=== PATIENT | female | born 1990 | race Caucasian/White ===

== ENCOUNTER 2018-08-08 16:15 | Inpatient (IN) | payer OTHER ==
[2018-08-08 16:43] VITALS: BMI 25.9
[2018-08-08 17:11] LABS: Amnisure Test RUPTURE DETECTED (No Rupture)
[2018-08-08 17:12] LABS: Amnisure Internal Control QC ACCEPTABLE (ACCEPTABLE)
[2018-08-08] MEDS ORDERED: Ibuprofen 800 MG TAB PO PRN (17:36)
[2018-08-08] MEDS ORDERED: Acetaminophen 500 MG TAB PO PRN (17:36)
[2018-08-08] MEDS ORDERED: Promethazine HCl 25 MG/ML VIAL IM PRN ×2 (17:36→20:49)
[2018-08-08] MEDS ORDERED: NS / Oxytocin 40 units/1000ml 1,000 ML IV PRN (17:36)
[2018-08-08] MEDS ORDERED: Butorphanol Tartrate 1 MG/ML VIAL SLOW IVP PRN (17:36)
[2018-08-08] MEDS ORDERED: Lidocaine 1% (PF) 30 ML VIAL SC PRN (17:36)
[2018-08-08] MEDS ORDERED: Zolpidem Tartrate 5 MG TAB PO PRN (17:36)
[2018-08-08] MEDS ORDERED: Ondansetron HCl/PF 4 MG/2 ML Vial IVP PRN ×2 (17:36→20:49)
[2018-08-08] MEDS ORDERED: HYDROcodone/Acetaminophen 5/325 mg Tablet PO PRN ×2 (17:36)
--- NOTE | 2018-08-08 17:44 | PDOC.LDHP ---
Labor and Delivery H&P Chief complaint: loss of fluid HPI: 28 yo LAF presents c/o SROM clear at 8:30 am. Now reports UCs q 10-15 mins. Current gestational age (weeks): 38 Due date: 08/18/18 Dating criteria: first trimester ultrasound Grav: 2 Para: 1 OB History Details: Initial PNC in [place], then transfered to Dr. Joyner. PNC complicated by GDM, well controlled on diet. Current complications: gestational diabetes Abnormal US findings: No Past Medical History: None Current medications: pre-pavithra vitamins Previous surgical history: none Allergies/Adverse Reactions: Allergies Allergy/AdvReac Type Severity Reaction Status Date / Time Tetanus Vaccines and Toxoid Allergy Verified 08/08/18 16:45 Social history: none - Physical Exam Vital signs reviewed and normal: yes General: NAD Lungs: nonlabored breathing Abdomen: gravid Extremeties: trace edema FHT: category 1 [place] contractions every: Q 7-8 mins, mild to palpation - Vaginal Exam cm dilated: 1 Effacement: 25% Station: -2 - OB Labs Blood type: unknown RH: unknown Antibody Screen: unknown HIV: unknown RPR: unknown HEPSAg: unknown 1 hour GCT: unknown GBS: unknown - Assessment L&D Assessment: term rupture in membranes - Plan Plan: admit to L&D, cervical ripening, labor augmentation if indicated, informed consent obtained (Will begin Cytotec 50 mg q 3hrs per Dr. Joyner)
[2018-08-08] MEDS ORDERED: Lactated Ringer's 1,000 ML IV SCH (17:45)
[2018-08-08] MEDS ORDERED: NS w/ Oxytocin 10 units 500 ML IV SCH (17:45)
[2018-08-08] MEDS: Lactated Ringer's 1,000 ML IV SCH ×2 (17:52→20:25)
--- NOTE | 2018-08-08 17:53 | PDOC.EVN ---
Event Note - Event Note Event Note: No PN records from [facility] available at this time. Pt. reports she was told she was GBS negative by Dr. Joyner.
[2018-08-08 17:57] LABS: Hemoglobin 11.3 g/dL (12.0-16.0); Mean Corpuscular HGB CONC 33.3 g/dL (32.0-36.0); Mean Corpuscular Hemoglobin 28.2 pg (27.0-31.0); Mean Corpuscular Volume 84.6 fL (78.0-98.0); Mean Platelet Volume 8.9 fL (7.4-10.4); Platelet Count 236 thou/uL (130-400); RBC Distribution Width 13.5 % (11.5-14.5); White Blood Cell (WBC) Count 9.6 thou/uL (4.8-10.8)
[2018-08-08] MEDS: Misoprostol 100 MCG TAB PO SCH ×2 (18:19→21:41)
[2018-08-08 18:31] LABS: Syphilis Antibody Nonreactive (Nonreactive); Syphilis Antibody Index 0.04 S/CO (<1.00 Non-Reactive)
[2018-08-08 18:32] LABS: HBSAg Index 0.22 S/CO (0-0.99); Hep B Surf Ag Non-Reactive S/CO (NonReactive)
[2018-08-08] MEDS ORDERED: Bupivacaine 0.5% 20 ML, fentaNYL Citrate/PF 400 MCG in Sodium Chloride 0.9% 72 ML EPIDURAL SCH (18:45)
[2018-08-08] MEDS ORDERED: DISCONTINUE ALL PREVIOUS NARCOTICS FS SCH (18:45)
[2018-08-08] MEDS ORDERED: Bupivacaine 0.25% HCL 30 ML VIAL ONE (20:26)
[2018-08-08] MEDS ORDERED: diphenhydrAMINE 50 MG/ML VIAL IVP PRN (20:49)
[2018-08-08] MEDS ORDERED: ePHEDrine/0.9% NaCl/PF SYRINGE 50 mg/10 ml SLOW IVP PRN (20:49)
[2018-08-08] MEDS ORDERED: Eucerin (Mineral Oil/Petrolatum,White) 30 gm Jar TOP PRN (20:49)
[2018-08-08] MEDS ORDERED: Lactated Ringer's 500 ML IV PRN (20:49)
[2018-08-08] MEDS ORDERED: Naloxone HCl 0.4 mg/ml Vial IVP PRN ×2 (20:49)
[2018-08-08] MEDS ORDERED: Acetaminophen 325 MG TAB PO PRN (20:49)
[2018-08-08] MEDS ORDERED: fentaNYL Citrate/PF 400 MCG, Bupivacaine 0.5% 20 ML in Sodium Chloride 0.9% 72 ML EPIDURAL SCH (21:00)
[2018-08-08] MEDS ORDERED: Communication Order-Pharmacy FS SCH (21:00)
[2018-08-09] MEDS ORDERED: Bupivacaine 0.25% HCL 30 ML VIAL ONE (01:11)
[2018-08-09] MEDS ORDERED: Bupivacaine/Epinephrine 0.25% 30 ML VIAL ONE (01:11)
--- NOTE | 2018-08-09 02:21 | PDOC.OPDEL ---
OB Operative/Delivery Note Delivery Dr/Surgeon: Ar Assist: n/a Pre-Delivery Diagnosis: ruptured membrane Procedure/Post Delivery Dx: spontaneous vaginal delivery Weeks gestation: 38 Anesthesia: epidural - Findings A Sex: male - 1 min: 7 - 5 min: 9 - Additional Findings/Plan Placenta delivered: spontaneous Repaired Obstetrical Laceration: none Estimated blood loss: 300 qbl pending Compilations/Other Findings: Tight NC x 2, delivered through Post delivery plan: routine recovery
[2018-08-09] MEDS: Misoprostol 100 MCG TAB PO SCH ×2 (03:55→10:46)
[2018-08-09] MEDS ORDERED: HYDROcodone/Acetaminophen 5/325 mg Tablet PO PRN ×2 (03:56)
[2018-08-09] MEDS ORDERED: Benzocaine/Menthol 20-0.5% 60 ML CAN TOP PRN (03:56)
[2018-08-09] MEDS ORDERED: NS / Oxytocin 40 units/1000ml 1,000 ML IV SCH (03:56)
[2018-08-09] MEDS ORDERED: diphenhydrAMINE 25 MG CAP PO PRN (03:56)
[2018-08-09] MEDS ORDERED: Milk Of Magnesia 30 ML UDCUP PO PRN (03:56)
[2018-08-09] MEDS ORDERED: Bisacodyl 10 MG SUPP PR PRN (03:56)
[2018-08-09] MEDS ORDERED: Preparation H Ointment 28 GM TUBE PR PRN (03:56)
[2018-08-09] MEDS ORDERED: Ibuprofen 800 MG TAB PO SCH (06:00)
[2018-08-09] MEDS ORDERED: Ferrous Sulfate 325 MG TAB PO SCH (08:00)
[2018-08-09] MEDS ORDERED: Docusate Calcium (SURFAK) 240 MG CAP PO SCH (09:00)
[2018-08-09] MEDS: Prenatal Vitamin 1 TAB PO SCH (09:12)
[2018-08-09] MEDS ORDERED: diphenhydrAMINE 12.5 MG/5 ML UDCUP PO PRN (13:00)
[2018-08-09] MEDS: Ibuprofen 100 MG/5 ML UDCUP PO SCH ×2 (13:20→22:10)
[2018-08-09] MEDS: Lanolin Ointment 7 GM TUBE TOP PRN (13:22)
[2018-08-09] MEDS: Docusate Sodium 100 MG/10 ML UDCUP PO SCH (22:06)
[2018-08-10] MEDS: Ibuprofen 100 MG/5 ML UDCUP PO SCH ×2 (05:54→08:47)
--- NOTE | 2018-08-10 07:31 | PDOC.PP ---
Post Progress Note Post Day #: 1 PO intake tolerated: yes Flatus: yes Ambulation: yes Vital Signs (12 hours) Temp Pulse Resp BP 08/09/18 23:43 98.0 F 78 16 94/55 L 08/09/18 19:40 97.9 F 75 16 101/57 L Weight Weight 142 lb - Physical Examination General: NAD Cardiovascular: RRR Respiratory: non-labored breathing Abdominal: no distention, appropriately TTP Fundus firm & at: umb-2 Skin: no rash Psychiatric: normal affect Result Diagrams: 08/08/18 17:42 Additional Labs: Post Labs Blood Type A POSITIVE 08/08/18 17:42 Hep Bs Antigen Non-Reactive S/CO (NonReactive) 08/08/18 17:42 - Assessment/Plan PPD1 s/p TSVD VSSAF Doing well lochia appropriate Rh pos RImm DC home FU 6w
[2018-08-10 07:57] VITALS: BP 99/54; TEMP 98.7
[2018-08-10] MEDS: Prenatal Vitamin 1 TAB PO SCH (08:48)
[2018-08-10] MEDS: Docusate Sodium 100 MG/10 ML UDCUP PO SCH (08:48)
[2018-08-10] MEDS: Lanolin Ointment 7 GM TUBE TOP PRN (16:12)
== END 2018-08-10 17:25 | disposition home or self-care (01) | DRG 807 ==
LOC: L&D/OP 16:15 → L&D 17:36 → 3SW 08-09 04:37
PROVIDERS: ADMIT Student in an Organized Health Care Education/Training Program; ATTEND Student in an Organized Health Care Education/Training Program
PROC: 10E0XZZ Delivery of Products of Conception, External Approach (ICD-10-PCS; principal; 2018-08-08)
DX: O24.420 Gestational diabetes mellitus in childbirth, diet controlled (principal); Z37.0 Single live birth; Z3A.38 38 weeks gestation of pregnancy; O76 Abnormality in fetal heart rate and rhythm complicating labor and delivery; O69.1XX0 Labor and delivery complicated by cord around neck, with compression, not applicable or unspecified
CPT/HCPCS: 51702; 76815; 84112; 85027; 86780; 86850; 86900; 86901; 87340; 99285; J2001; J3010; J3490; J7050; S0020